=== PATIENT | female | born 1960 | race Caucasian/White ===

== ENCOUNTER → 2022-04-27 | Day surgery (SDC) | payer OTHER ==
[~2022-04-27] VITALS: Ht 162.6 cm; Wt 56.7 kg
[~2022-04-27] MED LIST: AMBIEN CR12.5 MG PO; BUTALBIT-ACETA1 EACH PO; FLEXERIL5 MG PO; GABAPENTIN800 MG PO; IBUPROFEN800 M1 PO; LEXAPRO20 MG PO; OXYCODONE PO; SYNTHROID50 MCG PO; VENTOLIN HFA IN18 GM INH; ZETIA10 MG PO
== END | disposition home or self-care (01) ==
LOC: FAS 10:18
DX: N84.0 Polyp of corpus uteri (principal); N88.2 Stricture and stenosis of cervix uteri; E78.00 Pure hypercholesterolemia, unspecified; M06.9 Rheumatoid arthritis, unspecified; F41.9 Anxiety disorder, unspecified; E03.9 Hypothyroidism, unspecified; J45.909 Unspecified asthma, uncomplicated
CPT/HCPCS: J1100; J1170; J1885; J2250; J2405; J2704; J3010; J7120